=== PATIENT | female | born 1995 | race Caucasian/White ===

== ENCOUNTER → 2017-11-15 | Outpatient (CLI) | payer BC ==
[~2017-11-15] MED LIST: ACETAMINOPHEN-1 EAC1 PO; CONCERTA54 M1 PO
== END ==
LOC: M.ULTRA 16:00
DX: L04.0 Acute lymphadenitis of face, head and neck (principal); R22.1 Localized swelling, mass and lump, neck

== ENCOUNTER → 2017-12-08 | Outpatient (CLI) | payer BC ==
[2017-12-08 11:44] LABS: ABSOLUTE EOSINOPHILS 0.2 thou/uL (0.0-0.7); ABSOLUTE LYMPHOCYTES 1.7 thou/uL (0.8-5.3); ABSOLUTE MONOCYTES 0.4 thou/uL (0.0-1.2); ABSOLUTE NEUTROPHILS 3.1 thou/uL (1.6-8.1); BASOPHILS 0.7 %; EOSINOPHILS 3.8 %; HEMATOCRIT 39.7 % (37.0-47.0); HEMOGLOBIN 13.2 gm/dL (12.0-15.0); LYMPHOCYTES 31.4 %; MCH 29.8 pg (26.0-34.0); MCHC 33.2 g/dL (28.0-37.0); MCV 89.8 fL (80.0-100.0); MONOCYTES 6.9 %; MPV 8.4 fl. (7.2-11.1); NUCLEATED RBCS 0 /100WBC; PLATELET COUNT* 284 thou/uL (150-400); POLYS 57.2 %; RBC 4.42 mil/uL (4.20-5.00); RDW-CV 13.5 % (10.5-14.5); WBC 5.4 thou/uL (4.0-11.0)
[2017-12-12 07:05] LABS: CMV IgM Abs <30.0 AU/mL (0.0-29.9); EBNA-1 IgG <18.0 U/mL (0.0-17.9); EBV EA IgG <9.0 U/mL (0.0-8.9); EBV VCA IgM <36.0 U/mL (0.0-35.9)
== END ==
LOC: M.LAB 11:27
PROVIDERS: Otolaryngology
DX: R59.0 Localized enlarged lymph nodes (principal)

== ENCOUNTER → 2019-10-12 | Outpatient (CLI) | payer BC | LOC: M.CT 08:38 | PROVIDERS: ATTEND Nurse Practitioner Family | DX: R10.2 Pelvic and perineal pain (principal); R10.9 Unspecified abdominal pain ==